=== PATIENT | male | born 1950 | race Caucasian/White ===

== ENCOUNTER 2022-09-21 12:28 | Inpatient (IN) | payer OTHER ==
[~2022-09-21] VITALS: Ht 160 cm; Wt 67.6 kg
[2022-09-21 12:35] VITALS: BP_SYST 112
[2022-09-21] MEDS ORDERED: cefTRIAXone 1 GM IVPB PREMIX 50 ML IV ONE (12:45)
[2022-09-21 13:02] LABS: BASOPHILS % (AUTO) 0.4 % (0.0-2.0); EOSINOPHILS # (AUTO) 0.1 K/uL (0.0-0.4); HEMATOCRIT 45.5 % (36-54); HEMOGLOBIN 14.4 g/dL (14.0-18.0); LYMPHOCYTES # (AUTO) 1.6 K/uL (1.0-5.5); LYMPHOCYTES % (AUTO) 13.1 % (20.5-51.5); MEAN CORPUSCULAR HEMOGLOBIN 26 pg (27-31); MEAN CORPUSCULAR HGB CONC 32 % (32-36); MEAN CORPUSCULAR VOLUME 83 fL (79.0-98.0); MONOCYTES # (AUTO) 0.7 K/uL (0.0-1.0); MONOCYTES % (AUTO) 5.5 % (1.7-9.3); NEUTROPHILS # (AUTO) 9.7 K/uL (1.8-7.7); PLATELET COUNT (AUTO) 386 K/uL (130-430); RED BLOOD CELL COUNT(AUTO) 5.47 MIL/uL (4.2-6.2); RED CELL DISTRIBUTION WIDTH 15.8 % (9.0-15.0); WHITE BLOOD COUNT (AUTO) 12.1 K/uL (4.8-10.8)
[2022-09-21 13:17] LABS: ANION GAP 9 (5-15); CHLORIDE 101 mmol/L (98-107); CREATININE 0.96 mg/dL (0.55-1.30); GLUCOSE 147 mg/dL (70-99); UREA NITROGEN, BLOOD 21 mg/dL (8-21)
[2022-09-21 13:30] LABS: ALANINE AMINOTRANSFERASE 17 U/L (12-78); ALBUMIN 4.2 g/dL (3.4-4.8); ASPARTATE AMINOTRANSFERASE 15 U/L (10-37); TOTAL BILIRUBIN 0.6 mg/dL (0.0-1.0)
[2022-09-21 15:14] LABS: BILIRUBIN,URINE NEGATIVE (NEGATIVE); BLOOD, URINE 3+ (NEGATIVE); COLOR,URINE YELLOW (YELLOW); GLUCOSE,URINE NEGATIVE (NEGATIVE); KETONES,URINE 1+ (NEGATIVE); LEUKOCYTE ESTERASE ,URINE NEGATIVE (NEGATIVE); NITRITE, URINE NEGATIVE (NEGATIVE); PROTEIN URINE NEGATIVE (NEGATIVE); UROBILINOGEN,URINE 0.2 (0.2-1.0)
[2022-09-21 15:20] LABS: CLARITY/URINE SLIGHTLY CLOUDY (CLEAR)
[2022-09-21 15:32] LABS: RBC,URINE 50-80 /HPF (0-3)
[2022-09-21 15:33] LABS: BACTERIA,URINE None Seen /HPF (None Seen); URINE AMORPHOUS URATE 1+ /HPF (None Seen); WBC,URINE 0-3 /HPF (0-3)
[2022-09-21 15:35] LABS: MUCUS,URINE 1+ /LPF (None Seen)
[2022-09-21] MEDS ORDERED: levETIRAcetam 1,000 MG in NS 90 ML IV ONE (16:00)
[2022-09-21] MEDS ORDERED: LORazepam 2 MG/ML VIAL IVP ONE (16:00)
[2022-09-21] MEDS ORDERED: cefTRIAXone 1 GM in D5W 50 ML IV ONE (16:30)
[2022-09-21] MEDS ORDERED: ONDANSETRON HCL 4 MG/2 ML VIAL IVP PRN (16:30)
[2022-09-21] MEDS ORDERED: INSULIN REGULAR, HUMAN 100 UNITS/ML, 3 ML VIAL (humuLIN R) SUBCUT PRN (16:30)
[2022-09-21] MEDS: NACL 0.9% 1,000 ML IV SCH ×4 (16:50→18:50)
[2022-09-21] MEDS ORDERED: CLOP75TA32 PO (17:27)
[2022-09-21] MEDS ORDERED: DONE-49 PO (17:27)
[2022-09-21] MEDS ORDERED: VITD400 PO (17:27)
[2022-09-21] MEDS ORDERED: METF-518 PO (17:27)
[2022-09-21] MEDS ORDERED: ASA81 PO (17:27)
[2022-09-21] MEDS ORDERED: D5W 1,000 ML IV PRN (18:45)
[2022-09-21] MEDS ORDERED: DEXTROSE 50% JECT 50 ML DISP.SYRIN IVP PRN (18:45)
[2022-09-21] MEDS ORDERED: GLUCOSE (DEXTROSE) ORAL GEL -Adults PO PRN (18:45)
[2022-09-21] MEDS ORDERED: D5/0.45 NS 1,000 ML IV ONE (19:30)
[2022-09-21 20:30] VITALS: BP_SYST 116
[2022-09-21] MEDS: ATORVASTATIN 20 MG TABLET PO SCH (22:21)
[2022-09-22] VITALS: BP_SYST 120
[2022-09-22 07:37] LABS: BASOPHILS # (AUTO) 0.1 K/uL (0.0-0.2); EOSINOPHILS # (AUTO) 0.2 K/uL (0.0-0.4); EOSINOPHILS % (AUTO) 1.6 % (0.0-4.0); HEMATOCRIT 42.5 % (36-54); HEMOGLOBIN 13.9 g/dL (14.0-18.0); LYMPHOCYTES # (AUTO) 2.3 K/uL (1.0-5.5); LYMPHOCYTES % (AUTO) 20.7 % (20.5-51.5); MEAN CORPUSCULAR HEMOGLOBIN 27 pg (27-31); MEAN CORPUSCULAR HGB CONC 33 % (32-36); MEAN CORPUSCULAR VOLUME 82 fL (79.0-98.0); MONOCYTES # (AUTO) 1.2 K/uL (0.0-1.0); MONOCYTES % (AUTO) 10.5 % (1.7-9.3); NEUTROPHILS # (AUTO) 7.3 K/uL (1.8-7.7); NEUTROPHILS % (AUTO) 66.2 % (40.0-70.0); PLATELET COUNT (AUTO) 357 K/uL (130-430); RED BLOOD CELL COUNT(AUTO) 5.16 MIL/uL (4.2-6.2); WHITE BLOOD COUNT (AUTO) 11.1 K/uL (4.8-10.8)
[2022-09-22 08:24] LABS: ALBUMIN 3.7 g/dL (3.4-4.8); ANION GAP 11 (5-15); ASPARTATE AMINOTRANSFERASE 16 U/L (10-37); CALCIUM 9.6 mg/dL (8.4-11.0); CHLORIDE 101 mmol/L (98-107); CREATININE 0.88 mg/dL (0.55-1.30); GLUCOSE 114 mg/dL (70-99); TOTAL BILIRUBIN 0.8 mg/dL (0.0-1.0); UREA NITROGEN, BLOOD 23 mg/dL (8-21)
[2022-09-22 08:42] LABS: ALANINE AMINOTRANSFERASE 11 U/L (12-78)
[2022-09-22] MEDS: ASPIRIN 81 MG TAB.CHEW PO SCH (09:17)
[2022-09-22] MEDS: ENOXAPARIN SODIUM 40 MG/0.4 ML SYRINGE SUBCUT SCH (09:17)
[2022-09-22] MEDS ORDERED: LORazepam 2 MG/ML VIAL ONE (12:27)
[2022-09-22 12:30] VITALS: BP_SYST 107
[2022-09-22] MEDS ORDERED: LORazepam 2 MG/ML VIAL IVP ONE (12:30)
[2022-09-22] MEDS ORDERED: GADOTERATE MEGLUMINE 7.5 MMOL/15 ML VIAL IV ONE (12:43)
[2022-09-22 16:30] VITALS: BP_SYST 111
[2022-09-22 20:10] VITALS: BP_SYST 118
[2022-09-22] MEDS: ATORVASTATIN 20 MG TABLET PO SCH (21:00)
[2022-09-22] MEDS: NACL 0.9% 1,000 ML IV SCH (23:21)
[2022-09-23] VITALS: BP_SYST 151
[2022-09-23 08:31] VITALS: BP_SYST 120
[2022-09-23] MEDS: ENOXAPARIN SODIUM 40 MG/0.4 ML SYRINGE SUBCUT SCH (09:03)
[2022-09-23] MEDS: ASPIRIN 81 MG TAB.CHEW PO SCH (09:03)
[2022-09-23 12:00] VITALS: BP_SYST 126
[2022-09-23 16:00] VITALS: BP_SYST 112
[2022-09-23] MEDS: NACL 0.9% 1,000 ML IV SCH ×2 (18:00→23:20)
[2022-09-23 19:30] VITALS: BP_SYST 127
[2022-09-23] MEDS: ATORVASTATIN 20 MG TABLET PO SCH (21:00)
[2022-09-24] VITALS: BP_SYST 144
[2022-09-24 08:02] VITALS: BP_SYST 137
[2022-09-24] MEDS: ASPIRIN 81 MG TAB.CHEW PO SCH (08:58)
[2022-09-24] MEDS: ENOXAPARIN SODIUM 40 MG/0.4 ML SYRINGE SUBCUT SCH (08:59)
[2022-09-24 11:19] VITALS: BP_SYST 120
[2022-09-24 15:32] VITALS: BP_SYST 118
[2022-09-24 20:00] VITALS: BP_SYST 119
[2022-09-24] MEDS: ATORVASTATIN 20 MG TABLET PO SCH (21:19)
[2022-09-24] MEDS: NACL 0.9% 1,000 ML IV SCH (21:20)
[2022-09-25 00:15] VITALS: BP_SYST 112
[2022-09-25 08:18] VITALS: BP_SYST 124
[2022-09-25] MEDS: ASPIRIN 81 MG TAB.CHEW PO SCH (09:10)
[2022-09-25] MEDS: ENOXAPARIN SODIUM 40 MG/0.4 ML SYRINGE SUBCUT SCH (09:41)
[2022-09-25 11:35] VITALS: BP_SYST 124
[2022-09-25 12:15] VITALS: BP_SYST 117
[2022-09-25] MEDS: NACL 0.9% 1,000 ML IV SCH ×8 (15:35→23:30)
[2022-09-25 16:15] VITALS: BP_SYST 121
[2022-09-25 20:00] VITALS: BP_SYST 128
[2022-09-25] MEDS: ATORVASTATIN 20 MG TABLET PO SCH (21:19)
[2022-09-26 01:30] VITALS: BP_SYST 115
[2022-09-26] MEDS: NACL 0.9% 1,000 ML IV SCH ×2 (03:15→08:30)
[2022-09-26 08:00] VITALS: BP_SYST 128
[2022-09-26] MEDS: ENOXAPARIN SODIUM 40 MG/0.4 ML SYRINGE SUBCUT SCH (08:27)
[2022-09-26] MEDS: ASPIRIN 81 MG TAB.CHEW PO SCH (08:27)
[2022-09-26 12:00] VITALS: BP_SYST 112
[2022-09-26 16:00] VITALS: BP_SYST 118
[2022-09-26 19:20] VITALS: BP_SYST 155
[2022-09-26] MEDS: ATORVASTATIN 20 MG TABLET PO SCH (21:06)
[2022-09-26] MEDS: NYSTATIN 15 GM TOPICAL POWDER TP SCH (21:06)
[2022-09-27 00:41] VITALS: BP_SYST 136
[2022-09-27 08:00] VITALS: BP_SYST 146
[2022-09-27] MEDS: ENOXAPARIN SODIUM 40 MG/0.4 ML SYRINGE SUBCUT SCH (08:49)
[2022-09-27] MEDS: ASPIRIN 81 MG TAB.CHEW PO SCH (08:49)
[2022-09-27] MEDS: NACL 0.9% 1,000 ML IV SCH (08:50)
[2022-09-27 12:34] VITALS: BP_SYST 140
[2022-09-27] MEDS ORDERED: NYST15PO2 TP (12:41)
[2022-09-27] MEDS: NYSTATIN 15 GM TOPICAL POWDER TP SCH (16:48)
[2022-09-27 17:17] VITALS: BP_SYST 144
[2022-09-27 20:00] VITALS: BP_SYST 162
[2022-09-27] MEDS: ATORVASTATIN 20 MG TABLET PO SCH (21:11)
[2022-09-28] MEDS: NYSTATIN 15 GM TOPICAL POWDER TP SCH ×2 (01:42→08:43)
[2022-09-28 02:18] VITALS: BP_SYST 124
[2022-09-28] MEDS: ASPIRIN 81 MG TAB.CHEW PO SCH (08:44)
[2022-09-28] MEDS: ENOXAPARIN SODIUM 40 MG/0.4 ML SYRINGE SUBCUT SCH (08:44)
[2022-09-28 13:43] VITALS: BP_SYST 104
[2022-09-28 15:41] VITALS: BP_SYST 112
[2022-09-28 17:37] VITALS: BP_SYST 116
[2022-09-28 20:15] VITALS: BP_SYST 143
== END 2022-09-28 21:00 | DRG 100 ==
LOC: SED 12:28 → STU 19:25
PROVIDERS: ADMIT Specialist; ATTEND Specialist
PROC: 4A00X4Z Measurement of Central Nervous Electrical Activity, External Approach (ICD-10-PCS; principal; 2022-09-26)
DX: G40.89 Other seizures (principal); R65.11 Systemic inflammatory response syndrome (SIRS) of non-infectious origin with acute organ dysfunction; G93.40 Encephalopathy, unspecified; D72.829 Elevated white blood cell count, unspecified; E11.9 Type 2 diabetes mellitus without complications; Z20.822 Contact with and (suspected) exposure to COVID-19; Z85.118 Personal history of other malignant neoplasm of bronchus and lung; Z86.73 Personal history of transient ischemic attack (TIA), and cerebral infarction without residual deficits
CPT/HCPCS: 36415; 70450-TC; 70544; 70547; 70553; 71045; 76376; 80053; 81000; 82962; 83605; 83880; 84484; 85025; 87040; 87086; 92610-GN; 93005; 93306; 95816; 96374; 97116-GP; 97163-GP; 97530-GP; 99285; A9575; G0378; J0696; J1650; J1815; J1953; J2060; J7030; J7040; J7042; J7050; J7060